=== PATIENT | female | born 1950 | race Caucasian/White ===

== ENCOUNTER → 2017-12-09 | Outpatient (CLI) | payer MEDICARE | LOC: M RAD 12:29 | DX: Z12.31 Encounter for screening mammogram for malignant neoplasm of breast (principal) | CPT/HCPCS: 77067 ==

== ENCOUNTER → 2018-01-26 | Outpatient (CLI) | payer MEDICARE | LOC: M WUC 13:37 | DX: M79.672 Pain in left foot (principal); S90.31XA Contusion of right foot, initial encounter; M77.32 Calcaneal spur, left foot; M77.31 Calcaneal spur, right foot; X58.XXXA Exposure to other specified factors, initial encounter; Y92.9 Unspecified place or not applicable | CPT/HCPCS: 73630 ==

== ENCOUNTER 2018-03-01 12:24 | Outpatient (RCR) | payer MEDICARE | END 2018-03-09 | disposition home or self-care (01) | LOC: M PT 12:24 | DX: Z47.89 Encounter for other orthopedic aftercare (principal); M76.62 Achilles tendinitis, left leg | CPT/HCPCS: 97110 ==

== ENCOUNTER 2018-03-11 12:09 | Outpatient (RCR) | payer MEDICARE | END 2018-04-09 | LOC: M PT 12:09 | DX: Z47.89 Encounter for other orthopedic aftercare (principal); M76.62 Achilles tendinitis, left leg | CPT/HCPCS: 97110 ==

== ENCOUNTER → 2019-03-11 | Outpatient (CLI) | payer MEDICARE ==
--- NOTE | 2019-03-11 15:15 | REP ---
BILATERAL SCREENING DIGITAL MAMMOGRAM WITHOUT 3D TOMOSYNTHESIS: There are no palpable abnormalities or other breast complaints. The the patient states she has not had a clinical breast examination in over a year. The Tyrer-Cuzick Score is: 4.8% . Comparison is 05/25/2014. There are scattered areas of fibroglandular density. There is no dominant mass, micro calcific cluster or architectural distortion that would indicate malignancy. There is no change from the prior study. Impression: BIRADS/ACR category 1 mammogram. Negative. Recommendation: Routine annual screening mammography. This mammogram was interpreted with the aid of a FDA approved computer-aided detection system. A. Negative mammogram reports should not delay biopsy if a dominant or clinically suspicious mass is present. B. Not all breast cancers are identified by mammography or tomosynthesis. C. Adenosis and dense breasts may obscure an underlying neoplasm. Patient letter M1. Electronically Signed by Ky Doyle MD 03/11/2019 03:06 P
== END ==
LOC: M RAD 13:52
PROVIDERS: ATTEND Family Medicine
DX: Z12.31 Encounter for screening mammogram for malignant neoplasm of breast (principal)

== ENCOUNTER 2019-03-25 11:13 | Emergency (ER) | payer MEDICARE ==
[~2019-03-25] VITALS: Ht 170.2 cm; Wt 108.2 kg
[2019-03-25 11:13] VITALS: BP 147/67
[2019-03-25] MEDS ORDERED: ONDANSETRON 4MG/2ML VIAL (J2405) IV ONE (12:15)
[2019-03-25] MEDS ORDERED: NS 1,000 ML IV ONE (12:15)
[2019-03-25] MEDS ORDERED: MORPHINE 4 MG/ML 1ML VIAL/SYRINGE (J2270) IV ONE (12:15)
[2019-03-25 12:34] LABS: BLOOD UREA NITROGEN 18 MG/DL (7-18); CALCIUM LEVEL 9.7 MG/DL (8.8-10.2); CARBON DIOXIDE LEVEL 19 MEQ/L (21-32); CHLORIDE LEVEL 108 MEQ/L (98-107); CREATININE FOR GFR 0.75 MG/DL (0.55-1.30); GLOMERULAR FILTRATION RATE > 60.0 (>45); GLUCOSE, FASTING 167 MG/DL (70-100); POTASSIUM SERUM 3.9 MEQ/L (3.5-5.1); SODIUM LEVEL 140 MEQ/L (136-145)
--- NOTE | 2019-03-25 12:45 | REP ---
Anterior abdominal wall ultrasound: History: Hernia. Abdominal pain. Sonographic findings: Normal subcutaneous tissue is seen. No abdominal wall defect is observed. No mass or cyst is seen. Impression: Unremarkable abdominal wall sonography. No evidence of hernia seen sonographically. Electronically Signed by Wesley Britt MD 03/25/2019 12:37 P
[2019-03-25 12:52] LABS: BASO # 0.1 10^3/uL (0.0-0.2); BASO % 0.8 % (0.0-1.0); EOS # 0.2 10^3/uL (0.0-0.50); EOS % 1.8 % (0.0-3.0); HEMATOCRIT 45.9 % (36.0-47.0); HEMOGLOBIN 15.1 g/dl (12.0-15.5); LYMPH # 2.2 10^3/uL (1.5-4.5); LYMPH % 23.8 % (24.0-44.0); MEAN CORPUSCULAR HEMOGLOBIN 28.8 pg (27.0-33.0); MEAN CORPUSCULAR HGB CONC 32.9 g/dl (32.0-36.5); MEAN CORPUSCULAR VOLUME 87.4 fl (80.0-96.0); MONO # 0.5 10^3/uL (0.0-0.8); MONO % 5.7 % (0.0-5.0); NEUTROPHILS # 6.3 10^3/uL (1.8-7.7); NEUTROPHILS % 67.7 % (36.0-66.0); PLATELET COUNT, AUTOMATED 232 10^3/uL (150-450); RED BLOOD COUNT 5.25 10^6/uL (4.00-5.40); WHITE BLOOD COUNT 9.3 10^3/uL (4.0-10.0)
[2019-03-25] MEDS ORDERED: ISOVUE-370 76% 100ML VIAL (Q9967) As Ordered ONE (13:16)
[2019-03-25 14:01] LABS: ALBUMIN 3.9 GM/DL (3.2-5.2); ALT/SGPT 56 U/L (12-78); AMYLASE 29 U/L (25-115); BILIRUBIN,DIRECT 0.1 MG/DL (0.0-0.2); BILIRUBIN,TOTAL 0.5 MG/DL (0.2-1.0); LIPASE 74 U/L (73-393); TOTAL PROTEIN 7.6 GM/DL (6.4-8.2)
[2019-03-25] MEDS ORDERED: CARA1TAB6 PO ×2 (14:32→14:53)
[2019-03-25] MEDS ORDERED: ONDA4TAB6 PO ×2 (14:38→14:53)
--- NOTE | 2019-03-25 15:54 | REP ---
CT ABDOMEN PELVIS WITH IV BUT WITHOUT ORAL CONTRAST: HISTORY: Epigastric pain. No comparison CT study. CT CONTRAST DOSE: 100 mL of intravenous Isovue 370. CT FINDINGS: Digital preliminary practice representative radiograph shows an unremarkable bowel gas pattern. The lung bases are essentially clear on axial CT images. The liver is homogeneous in texture and normal in size with diffuse fatty infiltration. Spleen is unremarkable. No pancreatic abnormality is seen. There are calcified gallstones layering in the dependent portion the gallbladder. No gallbladder wall thickening or pericholecystic fluid is seen. There is a tiny adrenal nodule in the left adrenal gland measuring 1.5 x 1.9 cm. There is a tiny accessory splenule in the left upper quadrant. No retroperitoneal mass or adenopathy is observed. The kidneys enhance symmetrically and are morphologically intact. Small and large intestinal bowel loops are normal in the upper abdomen. Pelvic CT images demonstrate that the cecum is deep in the pelvis and across the midline. A short segment of appendix is seen projecting posteriorly and to the right from the tip of the cecum in the central pelvis. There is no evidence of appendiceal inflammation. No ovarian or uterine abnormality is seen. Urinary bladder is largely empty but appears intact. No abdominal wall defect is observed. Bone window settings show no bony destructive lesion. IMPRESSION: 1. Diffuse fatty infiltration of the liver. 2. Cholelithiasis. 3. 1.9 cm left adrenal nodule, nonspecific but most likely a benign adrenal adenoma. Consider noncontrast CT scanning at a later date. 4. No other abnormality. Electronically Signed by Wesley Britt MD 03/25/2019 03:25 P
--- NOTE | 2019-03-27 21:14 | ED PDOC ---
Post-Departure Follow-Up dr boyer faxed formal report of ct ab/p for fu Kristina Almeida MD Mar 27, 2019 21:14
[2019-05-12] MEDS ORDERED: HYDR25TAB PO (08:51)
[2019-05-12] MEDS ORDERED: TRES1INJ SQ (08:51)
[2019-05-12] MEDS ORDERED: IBUP1TAB6 PO (08:51)
[2019-05-12] MEDS ORDERED: JANU100T PO (08:51)
[2019-05-12] MEDS ORDERED: PIOG1TAB37 PO (08:51)
[2019-05-12] MEDS ORDERED: GLIP5TAB8 PO ×2 (08:51)
[2019-05-12] MEDS ORDERED: FLUTISP (08:51)
[2019-05-12] MEDS ORDERED: RANI150T14 PO (08:51)
[2019-05-12] MEDS ORDERED: MULTCAP PO (08:51)
[2019-05-12] MEDS ORDERED: PURE500C5 PO (08:51)
[2019-05-12] MEDS ORDERED: TOLT4CAP3 PO (08:51)
[2019-05-12] MEDS ORDERED: SIMV40TA20 PO (08:51)
[2019-05-12] MEDS ORDERED: OYST1TAB PO (08:51)
[2019-05-12] MEDS ORDERED: D 1010002 PO (08:51)
[2019-05-12] MEDS ORDERED: MAGN250T7 PO (08:51)
[2019-05-12] MEDS ORDERED: LISI10TA4 PO (08:51)
[2019-05-12] MEDS ORDERED: LEVO150T7 PO (08:51)
== END 2019-03-25 15:16 | disposition home or self-care (01) ==
LOC: M ED 11:13
DX: K80.70 Calculus of gallbladder and bile duct without cholecystitis without obstruction (principal); E11.9 Type 2 diabetes mellitus without complications; Z88.1 Allergy status to other antibiotic agents; Z88.8 Allergy status to other drugs, medicaments and biological substances
CPT/HCPCS: 74177; 76705; 80048; 80076; 82150; 83605; 83690; 85025; 96374; 96375; 99284; J2270; J2405; Q9967

== ENCOUNTER → 2019-04-07 | Outpatient (CLI) | payer MEDICARE ==
[~2019-04-07] MED LIST: CARA1TAB6 PO; D 1010002 PO; FLUTISP; GLIP5TAB8 PO; HYDR25TAB PO; IBUP1TAB6 PO; JANU100T PO; LEVO150T7 PO; LISI10TA4 PO; MAGN250T7 PO; MULTCAP PO; ONDA4TAB6 PO; OYST1TAB PO; PIOG1TAB37 PO; PURE500C5 PO; RANI150T14 PO; SIMV40TA20 PO; TOLT4CAP3 PO; TRES1INJ SQ
--- NOTE | 2019-04-12 10:53 | DEXA ---
AP SPINE L1 - L4 1.112 -0.7 1.0 LT FEMUR TOTAL 0.950 -0.5 0.9 LT NECK 0.979 -0.4 1.2 RT FEMUR TOTAL 0.891 -0.9 0.4 RT NECK 0.931 -0.8 0.8 TOTAL BODY TOTAL OTHER COMMENTS: Normal bone densitometry of the spine and hips. FOLLOW-UP: Recommendation for the next bone density exam: 5 years. MORGAN
== END ==
LOC: M WHC 14:22
PROVIDERS: ATTEND Family Medicine
DX: M85.9 Disorder of bone density and structure, unspecified (principal)

== ENCOUNTER 2019-05-13 08:01 | Day surgery (SDC) | payer MEDICARE ==
[~2019-05-13] VITALS: Ht 170.2 cm; Wt 107.0 kg
[~2019-05-13 08:01] MED LIST changes: +LIDOCAINE 1% MDV 20ML VIAL SQ PRN; +LR 1,000 ML IV ONE; +SIMV40TA2 PO; -SIMV40TA20 PO
[2019-05-13] MEDS ORDERED: MIDAZOLAM INJ 2 MG/2 ML VIAL (J2250) As Ordered ONE (08:06)
[2019-05-13] MEDS ORDERED: fentaNYL 100 MCG/2 ML INJECTION (J3010) As Ordered ONE (08:06)
[2019-05-13] MEDS ORDERED: HYDROmorphone HCL 2 MG/ML 1ML VIAL (J1170) As Ordered ONE (08:06)
[2019-05-13] MEDS ORDERED: PROPOFOL 200 MG/20 ML VIAL As Ordered ONE (08:06)
[2019-05-13] MEDS ORDERED: LIDOCAINE 2% INJ 100 MG/5 ML SDV (FOR ANES.) As Ordered ONE (08:07)
[2019-05-13] MEDS ORDERED: ROCURONIUM BROMIDE 50 MG/5 ML VIAL As Ordered ONE (08:07)
[2019-05-13] MEDS ORDERED: dexameTHASONE 4 MG/ML 1ML VIAL (J1100) As Ordered ONE (08:08)
[2019-05-13] MEDS ORDERED: ONDANSETRON 4MG/2ML VIAL (J2405) As Ordered ONE ×2 (08:08→14:02)
[2019-05-13] MEDS ORDERED: LIDOCAINE W/EPINEPHRINE 1% 20ML VIAL As Ordered ONE (09:01)
[2019-05-13] MEDS ORDERED: BUPIVACAINE/EPIN 0.25% 30 ML VIAL As Ordered ONE (09:01)
[2019-05-13] MEDS ORDERED: LACRILUBE (AKWA TEARS) OPHTH OINT 3.5 GM As Ordered ONE (09:06)
[2019-05-13] MEDS ORDERED: KETAMINE HCL 200 MG/20 ML VIAL As Ordered ONE (09:49)
[2019-05-13] MEDS ORDERED: SUGAMMADEX SODIUM 500 MG/5 ML VIAL (BRIDION) As Ordered ONE (09:49)
[2019-05-13] MEDS ORDERED: ePHEDrine SULFATE 25 MG/5 ML(5MG/ML) SYRINGE As Ordered ONE (09:49)
[2019-05-13] MEDS ORDERED: KETOROLAC 60 MG/2 ML VIAL (J1885) As Ordered ONE (09:49)
[2019-05-13] MEDS ORDERED: DESFLURANE 240 ML INHALANT As Ordered ONE (10:20)
[2019-05-13] MEDS ORDERED: LR 1,000 ML IV SCH (12:15)
[2019-05-13] MEDS ORDERED: fentaNYL 100 MCG/2 ML INJECTION (J3010) IV PRN (12:15)
[2019-05-13] MEDS ORDERED: NORCO, ANEXSIA 5/325MG TABLET (HYDROcodone/ACETAMINOPHEN) PO PRN (12:15)
[2019-05-13] MEDS ORDERED: HYDROMORPHONE HCL 0.5 MG/ 0.5 ML SYRINGE (J1170 PER 1) IV PRN (12:15)
[2019-05-13] MEDS ORDERED: ONDANSETRON 4MG/2ML VIAL (J2405) IV PRN (12:15)
[2019-05-13] MEDS ORDERED: oxyCODONE 5MG TAB As Ordered ONE ×2 (12:32→13:31)
[2019-05-13] MEDS: PERCOCET 5MG/325MG TAB PO PRN ×2 (12:47→13:40)
[2019-05-13] MEDS ORDERED: PERCOCET 5MG/325MG TAB As Ordered ONE (13:34)
[2019-05-13 14:10] VITALS: BP 136/63
--- NOTE | 2019-05-14 09:00 | RO ---
DATE OF PROCEDURE: 05/13/2019 PREOPERATIVE DIAGNOSIS: Abdominal wall lipoma and symptomatic cholelithiasis. POSTOPERATIVE DIAGNOSIS: Abdominal wall lipoma and symptomatic cholelithiasis. PROCEDURE: Robotic cholecystectomy with excision of abdominal wall lipoma measuring 8 x 15 cm. SURGEON: Dr. Ky Mcclure. LETTER STAMPING MACHINE OPERATOR: None. ANESTHESIA: General. ESTIMATED BLOOD LOSS: 5. COMPLICATIONS: None. INDICATIONS FOR PROCEDURE: Patient is a 68-year-old female who presents with a large bulge in the center of her upper abdomen above the umbilicus that is slightly bothering her as well as some right upper quadrant pains. She was found to have symptomatic cholelithiasis as well as a large abdominal wall lipoma. Recommendation was to proceed with robotic repair and then excision of the lipoma at the same time. She understood and agreed to the procedure. Risks and benefits of the procedure not limited to but including bleeding, infection, hernia formation, damage to surrounding structures, need for further surgery was discussed in detail with her. Informed consent was obtained and procedure was planned. PROCEDURE: The patient was brought back to operating room seven. After sufficient sedation, the abdomen was sterilely prepped and draped. Next time-out was done confirm proper patient and proper procedure. Following that, an 8 mm incision was made in left lower quadrant. Veress needle inserted and the abdomen was insufflated to 15 mmHg. Veress needle was then removed and 8 mm robotic port was used to gain access to the abdomen. Once inside, three more ports were placed on a diagonal from the left upper quadrant to the right midabdomen. The gallbladder was elevated up towards the right shoulder. Cystic duct and cystic artery were carefully dissected free using combination of blunt and sharp dissection. They were both then doubly clipped and cut. Gallbladder was then removed from the gallbladder fossa using electrocautery and brought out through the right middle port site right through the center of the lipoma. Once that was completed, the robot was undocked, the ports removed. The port site overlying the lipoma was enlarged to about 8 cm. Circumferential dissection around the lipoma was done using combination of blunt and sharp dissection with cautery developing skin flaps superior and inferior all the way down to the level of the fascia. Once that was completed, the lipoma was removed measuring about 8 x 15 cm. Bleeding was controlled with electrocautery. The subcutaneous tissues were reapproximated with interrupted #3-0 Vicryl sutures and then a layer of meseret was completed on top of that completing a layered repair. Once that was completed, the port sites were also closed with meseret and the abdomen was then cleaned and dried. Steri-Strips, 4x4 and tape were applied thus ending procedure.
== END 2019-05-13 14:48 | disposition home or self-care (01) ==
LOC: M SDC 08:01
PROVIDERS: ATTEND Surgery
DX: K80.10 Calculus of gallbladder with chronic cholecystitis without obstruction (principal); D17.1 Benign lipomatous neoplasm of skin and subcutaneous tissue of trunk; I10 Essential (primary) hypertension; E78.5 Hyperlipidemia, unspecified; E03.9 Hypothyroidism, unspecified; E11.9 Type 2 diabetes mellitus without complications; G47.30 Sleep apnea, unspecified; Z79.4 Long term (current) use of insulin; Z79.899 Other long term (current) drug therapy; K21.9 Gastro-esophageal reflux disease without esophagitis; Z88.8 Allergy status to other drugs, medicaments and biological substances; Z88.1 Allergy status to other antibiotic agents
CPT/HCPCS: 11406; 47562; 88304; J1100; J1170; J1885; J2250; J2405; J3010

== ENCOUNTER → 2021-01-23 | Outpatient (CLI) | payer MEDICARE ==
[~2021-01-23] MED LIST changes: +D31000TA2 PO; +HYDR-3490 PO; -HYDR25TAB PO; -LIDOCAINE 1% MDV 20ML VIAL SQ PRN; +LISI10TA22 PO; -LISI10TA4 PO; -LR 1,000 ML IV ONE; -SIMV40TA2 PO; +SIMV40TA20 PO; +TRES100I SC
--- NOTE | 2021-01-23 15:54 | REP ---
INDICATION: YAYA SCR MAMMO. COMPARISON: 03/11/2019 as well as other prior exams. TECHNIQUE: MLO and CC views bilateral breasts with tomosynthesis. FINDINGS: Mild scattered fibroglandular tissue is present. A round nodule is seen just superior and medial to the right nipple superficially, measuring about 8 mm in maximum diameter. Margins appear well defined. There is otherwise no change when compared to the prior studies. No other evidence of mass or clustered microcalcifications. Benign small calcifications are seen bilaterally. The Volpara volumetric breast density pattern is B. IMPRESSION: BIRADS/ACR category 0, incomplete. Well-defined 8 mm nodule superficially near the right nipple, slightly medial and superior. Recommend spot compression views and ultrasound to further evaluate. This patient's Tyrer-Cuzick lifetime breast cancer risk assessment score is 4.3%. This mammogram was interpreted with the aid of an FDA-approved computer-aided detection system. The patient states she had a clinical breast exam in over 1 year ago. The patient letter being requested is M0. RECOMMENDATION: Recommend spot compression views and ultrasound right breast as discussed above. <Electronically signed by Ky Cobos > 01/23/21 [id number]
== END ==
LOC: M WHC 14:38
PROVIDERS: ATTEND Family Medicine
DX: Z12.31 Encounter for screening mammogram for malignant neoplasm of breast (principal)

== ENCOUNTER → 2021-02-07 | Outpatient (CLI) | payer MEDICARE ==
--- NOTE | 2021-02-07 15:51 | REP ---
INDICATION: ADDITIONAL VIEWS RT BREAST. COMPARISON: Comparison is made with prior mammography from January 23, 2021, March 11, 2019, December 09, 2017, and remote prior studies dated May 15, 2014 and October 23, 2008. TECHNIQUE: Magnified focal spot-compression CC MLO and true mediolateral views of the right breast are obtained. 3D tomography is used in the mediolateral projection. Targeted right breast sonography is carried out. This mammogram was interpreted with the aid of an FDA-approved computer-aided detection system. FINDINGS: Diagnostic mammography of the right breast confirms the presence of 2 well-circumscribed superficial nodular densities in the right breast anterior 3rd superiorly and slightly medially. Based on the true mediolateral projection, 1 of these may be related to the undersurface of the dermis. The other is in the superficial soft tissues of the breast. They are well-circumscribed and measure 6 mm in greatest diameter each. On review of remote prior mammography, both of these nodular opacities are felt to have been present as far back as October 23, 2008 and overall, are not felt to be changed. The Volpara volumetric breast density pattern is b. Targeted ultrasound: Targeted right breast sonography is performed. In the retroareolar region of the right breast there is a complex cystic lesion in the dermis of the right periareolar breast. This measures 5 x 3 by 6 mm. It has a complex internal echoes and low K PA level on elastography. At 12 o'clock position 1 cm from the nipple, there is a 5 x 3 x 5 mm hypoechoic area with its long axis parallel to the skin which is felt to correspond with the 2nd mammographic opacity. This is solid but as above, felt to be unchanged from remote prior mammography. IMPRESSION: BIRADS/ACR category 2 benign right breast mammographic and sonographic findings. This patient's Tyrer-Cuzick lifetime breast cancer risk assessment score is 4.3%. RECOMMENDATION: Repeat screening mammography recommended 1 year (for women over 40). The patient letter being requested is M1. <Electronically signed by Julian Britt > 02/07/21 [id number]
== END ==
LOC: M WHC 13:57
PROVIDERS: ATTEND Family Medicine
DX: Z12.39 Encounter for other screening for malignant neoplasm of breast (principal); N64.4 Mastodynia

== ENCOUNTER → 2022-03-27 | Outpatient (CLI) | payer MEDICARE ==
[~2022-03-27] MED LIST changes: -D31000TA2 PO; +VITA100093 PO
== END ==
LOC: M WHC 14:30
PROVIDERS: ATTEND Family Medicine
DX: Z12.31 Encounter for screening mammogram for malignant neoplasm of breast (principal)

== ENCOUNTER → 2022-04-09 | Outpatient (RCR) | payer MEDICARE, OTHER | LOC: M PT 04-01 13:22 | PROVIDERS: ATTEND Physician Assistant Surgical | DX: M17.12 Unilateral primary osteoarthritis, left knee (principal); R26.9 Unspecified abnormalities of gait and mobility ==

== ENCOUNTER → 2022-05-09 | Outpatient (RCR) | payer MEDICARE | LOC: M PT 04-18 13:31 | PROVIDERS: ATTEND Physician Assistant Surgical | DX: M17.12 Unilateral primary osteoarthritis, left knee (principal) ==

== ENCOUNTER 2022-05-22 13:15 | Outpatient (RCR) | payer MEDICARE ==
[~2022-05-22 13:15] MED LIST changes: +ASCO500C3 PO; -PURE500C5 PO
== END 2022-06-09 ==
LOC: M PT 13:15
PROVIDERS: ATTEND Physician Assistant Surgical
DX: M17.12 Unilateral primary osteoarthritis, left knee (principal); R26.9 Unspecified abnormalities of gait and mobility

== ENCOUNTER → 2023-04-06 | Outpatient (CLI) | payer MEDICARE, MEDICAID ==
[~2023-04-06] MED LIST changes: +FLUT50SP17; -FLUTISP
== END ==
LOC: M WHC 14:40
PROVIDERS: ATTEND Family Medicine
DX: Z12.31 Encounter for screening mammogram for malignant neoplasm of breast (principal)

== ENCOUNTER → 2023-06-22 | Outpatient (CLI) | payer MEDICAID, MEDICARE ==
[~2023-06-22] MED LIST changes: +GLIP5TAB17 PO; -GLIP5TAB8 PO
== END ==
LOC: M PLAIMG 13:59
PROVIDERS: ATTEND Family Medicine
DX: D48.7 Neoplasm of uncertain behavior of other specified sites (principal)

== ENCOUNTER → 2023-06-29 | Outpatient (REF) | payer MEDICARE, MEDICAID | LOC: M LAB REF 12:24 | PROVIDERS: ATTEND Family Medicine | DX: E83.52 Hypercalcemia (principal) ==

== ENCOUNTER → 2024-02-01 | Outpatient (CLI) | payer MEDICARE, MEDICAID ==
[~2024-02-01] MED LIST changes: -FLUT50SP17; +FLUTISP; +ONDA-282 PO; -ONDA4TAB6 PO
== END ==
LOC: M WUC 10:39
PROVIDERS: ATTEND Student in an Organized Health Care Education/Training Program
DX: M25.511 Pain in right shoulder (principal)

== ENCOUNTER → 2024-03-08 | Outpatient (REF) | payer MEDICARE, MEDICAID | LOC: M LAB REF 17:47 | PROVIDERS: ATTEND Surgery | DX: D17.1 Benign lipomatous neoplasm of skin and subcutaneous tissue of trunk (principal) ==

== ENCOUNTER → 2024-06-06 | Outpatient (REF) | payer MEDICARE, MEDICAID | LOC: M LAB REF 16:40 | PROVIDERS: ATTEND Family Medicine | DX: E78.00 Pure hypercholesterolemia, unspecified (principal) ==

== ENCOUNTER → 2024-07-06 | Outpatient (CLI) | payer MEDICARE | LOC: M WHC 13:50 | PROVIDERS: ATTEND Family Medicine | DX: Z12.31 Encounter for screening mammogram for malignant neoplasm of breast (principal) ==

== ENCOUNTER 2024-07-08 14:25 | Emergency (ER) | payer MEDICARE ==
[~2024-07-08] VITALS: Ht 167.6 cm; Wt 85.3 kg
[2024-07-08] MEDS ORDERED: ISOVUE-370 76% 100ML VIAL As Ordered ONE (14:58)
[2024-07-08 14:59] LABS: VENOUS O2 SATURATION 81.8 % (60.0-80.0); VENOUS PARTIAL PRESSURE CO2 26.1 mmHg (38.0-50.0); VENOUS PARTIAL PRESSURE O2 42.1 mmHg (30.0-50.0); VENOUS PH 7.456 UNITS (7.330-7.430); VENOUS STANDARD HCO3 20.8 MMOL/L; VENOUS TOTAL CO2 18.8 MMOL/L (24.0-28.0)
[2024-07-08 15:04] LABS: BASO # 0.1 10^3/uL (0.0-0.2); BASO % 0.7 % (0.0-1.0); EOS # 0.1 10^3/uL (0.0-0.5); EOS % 0.8 % (0.0-3.0); HEMATOCRIT 44.4 % (36.0-47.0); LYMPH # 1.9 10^3/uL (1.5-5.0); LYMPH % 15.2 % (24.0-44.0); MEAN CORPUSCULAR HEMOGLOBIN 28.1 pg (27.0-33.0); MEAN CORPUSCULAR HGB CONC 33.8 g/dl (32.0-36.5); MEAN CORPUSCULAR VOLUME 83.1 fl (80.0-96.0); MONO # 0.6 10^3/uL (0.0-0.8); MONO % 4.8 % (2.0-8.0); NEUTROPHILS # 9.8 10^3/uL (1.5-8.5); NEUTROPHILS % 77.5 % (36.0-66.0); PLATELET COUNT, AUTOMATED 186 10^3/uL (150-450); RED BLOOD COUNT 5.34 10^6/uL (4.00-5.40); WHITE BLOOD COUNT 12.7 10^3/uL (4.0-10.0)
[2024-07-08 15:18] LABS: APPEARANCE, URINE CLEAR (CLEAR); BACTERIA, URINE AUTO NEGATIVE (NEGATIVE); BILIRUBIN, URINE AUTO NEGATIVE (NEGATIVE); BLOOD, URINE BLOOD 1+ (NEGATIVE); COLOR, URINE STRAW (YELLOW); GLUCOSE, URINE (UA) AUTO 3+ mg/dL (NEGATIVE); KETONE, URINE AUTO 1+ mg/dL (NEGATIVE); LEUKOCYTE ESTERASE, URINE AUTO NEGATIVE (NEGATIVE); MUCUS, URINE SMALL (NEGATIVE); NITRITE, URINE AUTO NEGATIVE (NEGATIVE); PROTEIN, URINE AUTO NEGATIVE (NEGATIVE); RBC, URINE AUTO 5 /HPF (0-3); SPECIFIC GRAVITY URINE AUTO 1.028 (1.002-1.035); SQUAMOUS EPITHELIAL CELL UR AU 0 /HPF (0-6); UROBILINOGEN, URINE AUTO 0.2 mg/dL (0.0-2.0); WBC, URINE AUTO 5 /HPF (0-3)
[2024-07-08 15:23] LABS: INR 1.01; PARTIAL THROMBOPLASTIN TIME 25.2 SECONDS (24.8-34.2); PROTHROMBIN TIME 13.6 SECONDS (12.5-14.5)
[2024-07-08 15:31] LABS: AMPHETAMINES LEVEL URINE NEGATIVE (NEGATIVE); BARBITURATES URINE NEGATIVE (NEGATIVE); BENZODIAZEPINES URINE NEGATIVE (NEGATIVE); CANNABINOIDS URINE NEGATIVE (NEGATIVE); PHENCYCLIDINE URINE NEGATIVE (NEGATIVE)
[2024-07-08 15:32] LABS: ETHYL ALCOHOL (ETHANOL) < 0.003 % (0.000-0.010); LIPASE 24 U/L (12-53)
[2024-07-08 15:32] LABS: COCAINE METABOLITE URINE NEGATIVE (NEGATIVE); METHADONE URINE NEGATIVE (NEGATIVE); OPIATES URINE NEGATIVE (NEGATIVE)
[2024-07-08 15:34] LABS: AMYLASE 31 U/L (30-118)
[2024-07-08 15:37] LABS: ALBUMIN 3.9 G/DL (3.2-5.2); ALKALINE PHOSPHATASE 91 U/L (35-104); ALT/SGPT 28 U/L (7.0-40); AST/SGOT 28 U/L (<34); BILIRUBIN,DIRECT 0.2 MG/DL (<0.4); BILIRUBIN,TOTAL 0.5 MG/DL (0.3-1.2); BLOOD UREA NITROGEN 21 MG/DL (9-23); CALCIUM LEVEL 10.5 MG/DL (8.3-10.6); CARBON DIOXIDE LEVEL 19 MMOL/L (20-31); CHLORIDE LEVEL 99 MMOL/L (98-107); CREATININE FOR GFR 0.65 MG/DL (0.55-1.30); GLOMERULAR FILTRATION RATE > 60.0 (>39); GLUCOSE, FASTING 475 MG/DL (74-106); POTASSIUM SERUM 4.2 MMOL/L (3.5-5.1); SODIUM LEVEL 134 MMOL/L (136-145); TOTAL PROTEIN 7.9 G/DL (5.7-8.2)
[2024-07-08] MEDS: ONDANSETRON 4MG 2ML VIAL IV ONE (15:56)
[2024-07-08] MEDS: HumuLIN R (REGULAR) INSULIN (NovoLIN R) **100U/ML** PER UNIT IV ONE (16:20)
[2024-07-08] MEDS: MORPHINE 2 MG/ML 1ML VIAL IV PRN (16:52)
[2024-07-08 17:00] VITALS: O2SAT 94
[2024-07-08 17:02] VITALS: BP 165/74; TEMP 96.7
== END 2024-07-08 17:07 | disposition short-term general hospital (02) ==
LOC: M ED 14:25 → EDBD 14:25 → M ED 17:07
DX: S12.101A Unspecified nondisplaced fracture of second cervical vertebra, initial encounter for closed fracture (principal); Y92.410 Unspecified street and highway as the place of occurrence of the external cause; Y93.9 Activity, unspecified; Y99.9 Unspecified external cause status; V49.50XA Passenger injured in collision with unspecified motor vehicles in traffic accident, initial encounter; R94.31 Abnormal electrocardiogram [ECG] [EKG]; I10 Essential (primary) hypertension; E78.00 Pure hypercholesterolemia, unspecified; E11.9 Type 2 diabetes mellitus without complications; E03.9 Hypothyroidism, unspecified; G47.33 Obstructive sleep apnea (adult) (pediatric); Z88.1 Allergy status to other antibiotic agents; Z88.8 Allergy status to other drugs, medicaments and biological substances; Z79.4 Long term (current) use of insulin; Z79.810 Long term (current) use of selective estrogen receptor modulators (SERMs); Z79.899 Other long term (current) drug therapy
CPT/HCPCS: 70450; 71045; 71260; 72125; 72170; 74177; 80048; 80076; 80307; 81001; 82077; 82150; 82803; 83605; 83690; 85025; 85610; 85730; 86850; 86900; 86901; 93005; 93041; 94760; 96374; 96375; 99285; J1815; J2405; Q9967

== ENCOUNTER → 2025-03-29 | Outpatient (REF) | payer MEDICARE ==
[2025-03-29 17:33] LABS: BASO # 0.1 10^3/uL (0.0-0.2); BASO % 0.9 % (0.0-1.0); EOS # 0.3 10^3/uL (0.0-0.5); EOS % 3.9 % (0.0-3.0); LYMPH # 2.1 10^3/uL (1.5-5.0); LYMPH % 28.9 % (24.0-44.0); MONO # 0.5 10^3/uL (0.0-0.8); MONO % 6.5 % (2.0-8.0); NEUTROPHILS # 4.4 10^3/uL (1.5-8.5); NEUTROPHILS % 59.5 % (36.0-66.0); PLATELET COUNT, AUTOMATED 236 10^3/uL (150-450)
[2025-03-29 17:41] LABS: ALT/SGPT 28 U/L (7.0-40); AST/SGOT 24 U/L (<34); C REACTIVE PROTEIN QUANTITATIV < 0.50 MG/DL (<1.0); CALCIUM LEVEL 9.8 MG/DL (8.3-10.6); CARBON DIOXIDE LEVEL 25 MMOL/L (20-31); CHLORIDE LEVEL 107 MMOL/L (98-107); CREATININE FOR GFR 0.56 MG/DL (0.55-1.30); GLOMERULAR FILTRATION RATE > 90.0 (>39); POTASSIUM SERUM 4.4 MMOL/L (3.5-5.1); SODIUM LEVEL 142 MMOL/L (136-145)
== END ==
LOC: M SFHCCAPE 13:37
PROVIDERS: ATTEND Physician Assistant Medical
DX: R30.0 Dysuria (principal); R10.32 Left lower quadrant pain

== ENCOUNTER → 2025-04-07 | Outpatient (CLI) | payer MEDICARE ==
[~2025-04-07] MED LIST changes: -IBUP1TAB6 PO; +ISOVUE-370 76% 100 ML VIAL As Ordered ONE; +SFHIBU600 PO
== END ==
LOC: M RAD 15:42
PROVIDERS: ATTEND Physician Assistant Medical
DX: R10.32 Left lower quadrant pain (principal); K57.90 Diverticulosis of intestine, part unspecified, without perforation or abscess without bleeding; R93.3 Abnormal findings on diagnostic imaging of other parts of digestive tract
CPT/HCPCS: 74178; Q9967

== ENCOUNTER → 2025-04-19 | Outpatient (REF) | payer MEDICARE ==
[~2025-04-19] MED LIST changes: -ISOVUE-370 76% 100 ML VIAL As Ordered ONE
[2025-04-19 17:57] LABS: APPEARANCE, URINE HAZY (CLEAR); BACTERIA, URINE AUTO NEGATIVE (NEGATIVE); BILIRUBIN, URINE AUTO NEGATIVE (NEGATIVE); BLOOD, URINE BLOOD 1+ (NEGATIVE); GLUCOSE, URINE (UA) AUTO 1+ mg/dL (NEGATIVE); KETONE, URINE AUTO NEGATIVE (NEGATIVE); LEUKOCYTE ESTERASE, URINE AUTO 2+ (NEGATIVE); MUCUS, URINE SMALL (NEGATIVE); NITRITE, URINE AUTO NEGATIVE (NEGATIVE); PROTEIN, URINE AUTO NEGATIVE (NEGATIVE); RBC, URINE AUTO 1 /HPF (0-3); SPECIFIC GRAVITY URINE AUTO 1.017 (1.002-1.035); SQUAMOUS EPITHELIAL CELL UR AU 11 /HPF (0-6); UROBILINOGEN, URINE AUTO 0.2 mg/dL (0.0-2.0); WBC, URINE AUTO 42 /HPF (0-3)
== END ==
LOC: M SFHCCAPE 10:36
PROVIDERS: ATTEND Physician Assistant Medical
DX: R10.9 Unspecified abdominal pain (principal)

== ENCOUNTER → 2025-04-25 | Outpatient (REF) | payer MEDICARE | LOC: M SFHCCAPE 11:31 | PROVIDERS: ATTEND Physician Assistant Medical | DX: R10.9 Unspecified abdominal pain (principal) ==

== ENCOUNTER 2025-05-12 11:54 | Emergency (ER) | payer MEDICARE ==
[~2025-05-12] VITALS: Ht 170.2 cm; Wt 74.8 kg
[2025-05-12] MEDS ORDERED: ASPI81TA26 PO (12:04)
[2025-05-12] MEDS ORDERED: LEVO175T2 (12:04)
[2025-05-12] MEDS ORDERED: ROSU5TAB49 (12:04)
[2025-05-12] MEDS ORDERED: LANTINJ4 (12:04)
[2025-05-12] MEDS ORDERED: NOVOINJ3 (12:04)
[2025-05-12] MEDS: NS (Normal Saline) 0.9% 1,000 ML IV ONE (14:04)
[2025-05-12 14:07] LABS: KETONE, URINE AUTO RFX NEGATIVE (NEGATIVE); LEUKOCYTE ESTERASE UR AUTO RFX 3+ (NEGATIVE); MUCUS, URINE RFX SMALL (NEGATIVE); NITRITE, URINE AUTO RFX NEGATIVE (NEGATIVE); RBC, URINE AUTO RFX 10 /HPF (0-3); SQUAM EPITHELIAL CELL UR AURFX 12 /HPF (0-6); WBC, URINE AUTO RFX 33 /HPF (0-3)
[2025-05-12] MEDS ORDERED: ISOVUE-370 76% 100 ML VIAL As Ordered ONE (14:14)
[2025-05-12 14:16] LABS: BASO # 0.1 10^3/uL (0.0-0.2); BASO % 1.1 % (0.0-1.0); EOS # 0.3 10^3/uL (0.0-0.5); EOS % 3.4 % (0.0-3.0); LYMPH # 2.2 10^3/uL (1.5-5.0); LYMPH % 26.1 % (24.0-44.0); MONO # 0.5 10^3/uL (0.0-0.8); MONO % 5.4 % (2.0-8.0); NEUTROPHILS # 5.4 10^3/uL (1.5-8.5); NEUTROPHILS % 63.6 % (36.0-66.0); PLATELET COUNT, AUTOMATED 338 10^3/uL (150-450)
[2025-05-12 14:45] LABS: ALT/SGPT 20.0 U/L (7.0-40); AST/SGOT 18.0 U/L (<34)
[2025-05-12] MEDS: MOM 30 ML SUSPENSION UDC PO ONE (15:38)
[2025-05-12] MEDS ORDERED: TRIMETHOPRIM/SULFAMETH 80/400 MG TAB PO ONE (18:10)
[2025-05-12] MEDS ORDERED: BACT800T5 PO (18:10)
[2025-05-12] MEDS ORDERED: GABA-1171 PO (18:24)
[2025-05-12 18:34] VITALS: BP 187/91; TEMP 97.8; O2SAT 96
[2025-05-12] MEDS: BACTRIM 160MG/800MG DS TAB PO ONE (18:41)
[2025-05-12] MEDS: GABAPENTIN 100 MG CAP PO ONE (18:41)
== END 2025-05-12 18:54 | disposition home or self-care (01) ==
LOC: M ED 11:54
DX: N39.0 Urinary tract infection, site not specified (principal); J91.8 Pleural effusion in other conditions classified elsewhere; S22.030A Wedge compression fracture of third thoracic vertebra, initial encounter for closed fracture; S22.040A Wedge compression fracture of fourth thoracic vertebra, initial encounter for closed fracture; S22.050A Wedge compression fracture of T5-T6 vertebra, initial encounter for closed fracture; Y92.9 Unspecified place or not applicable; Y93.9 Activity, unspecified; Y99.9 Unspecified external cause status; Z88.1 Allergy status to other antibiotic agents; Z88.8 Allergy status to other drugs, medicaments and biological substances; Z79.1 Long term (current) use of non-steroidal anti-inflammatories (NSAID); Z79.4 Long term (current) use of insulin; Z79.899 Other long term (current) drug therapy; Z79.810 Long term (current) use of selective estrogen receptor modulators (SERMs)
CPT/HCPCS: 36415; 71250; 74018; 74177; 80047; 80076; 81001; 83605; 83880; 85025; 87086; 99284; Q9967

== ENCOUNTER 2025-06-23 14:27 | Emergency (ER) | payer MEDICARE ==
[~2025-06-23] VITALS: Ht 170.2 cm; Wt 71.8 kg
[~2025-06-23 14:27] MED LIST changes: +ASPI81TA26 PO; +BACT800T5 PO; +GABA-1171 PO; +LANTINJ4 SQ; +LEVO175T2 PO; +NOVOINJ3 SUBQ; +ROSU5TAB49 PO
[2025-06-23 16:53] LABS: VENOUS BASE EXCESS -2.6 (-2.0-2.0); VENOUS HCO3 22.9 MMOL/L (23.0-27.0); VENOUS O2 SATURATION 52.9 % (60.0-80.0); VENOUS PARTIAL PRESSURE CO2 42.0 mmHg (38.0-50.0); VENOUS PARTIAL PRESSURE O2 29.4 mmHg (30.0-50.0); VENOUS PH 7.354 UNITS (7.330-7.430); VENOUS STANDARD HCO3 21.3 MMOL/L; VENOUS TOTAL CO2 24.2 MMOL/L (24.0-28.0)
[2025-06-23 17:09] LABS: BASO # 0.0 10^3/uL (0.0-0.2); BASO % 0.4 % (0.0-1.0); EOS # 0.1 10^3/uL (0.0-0.5); EOS % 1.3 % (0.0-3.0); LYMPH # 1.8 10^3/uL (1.5-5.0); LYMPH % 19.6 % (24.0-44.0); MONO # 0.6 10^3/uL (0.0-0.8); MONO % 6.8 % (2.0-8.0); NEUTROPHILS # 6.6 10^3/uL (1.5-8.5); NEUTROPHILS % 71.7 % (36.0-66.0); PLATELET COUNT, AUTOMATED 195 10^3/uL (150-450)
[2025-06-23 17:20] LABS: ESTIMATED AVERAGE GLUCOSE 332.0 MG/DL (60-110)
[2025-06-23 17:27] LABS: OSMOLALITY SERUM 317.0 MOSM/KG (280-301)
[2025-06-23 17:29] LABS: ACETONE/KETONE 0.28 MMOL/L (0.02-0.27)
[2025-06-23 17:32] LABS: ALT/SGPT 24.0 U/L (7.0-40); AST/SGOT 14.0 U/L (<34); CALCIUM LEVEL 9.5 MG/DL (8.3-10.6); CARBON DIOXIDE LEVEL 26.0 MMOL/L (20-31); CHLORIDE LEVEL 100.0 MMOL/L (98-107); CREATININE FOR GFR 0.76 MG/DL (0.55-1.30); GLOMERULAR FILTRATION RATE 82.2 (>39); POTASSIUM SERUM 4.0 MMOL/L (3.5-5.1); SODIUM LEVEL 136.0 MMOL/L (136-145)
[2025-06-23] MEDS ORDERED: GABA-1171 PO (17:44)
[2025-06-23] MEDS ORDERED: LEVO200T4 PO (17:44)
[2025-06-23] MEDS ORDERED: PANT-23 PO (17:49)
[2025-06-23] MEDS ORDERED: AMMO12CR4 TOP (17:49)
[2025-06-23] MEDS ORDERED: LISI10TA22 PO (17:49)
[2025-06-23] MEDS ORDERED: HOME MED LIST COMPLETE! XX SCH (17:50)
[2025-06-23] MEDS: HumuLIN R (REGULAR) INSULIN (NovoLIN R) **100 U/ML** PER UNIT IV ONE (17:51)
[2025-06-23] MEDS ORDERED: META28.32 PO (17:52)
[2025-06-23] MEDS ORDERED: MIRA3350 PO (17:52)
[2025-06-23 18:12] LABS: KETONE, URINE AUTO RFX TRACE mg/dL (NEGATIVE); MUCUS, URINE RFX SMALL (NEGATIVE); NITRITE, URINE AUTO RFX NEGATIVE (NEGATIVE); RBC, URINE AUTO RFX 5 /HPF (0-3); SQUAM EPITHELIAL CELL UR AURFX 11 /HPF (0-6)
[2025-06-23 18:13] LABS: LEUKOCYTE ESTERASE UR AUTO RFX 3+ (NEGATIVE); WBC, URINE AUTO RFX 60 /HPF (0-3)
[2025-06-23] MEDS: NS 500 ML IV ONE ×2 (19:25→19:30)
[2025-06-23] MEDS ORDERED: ISOVUE-370 76% 100 ML VIAL As Ordered ONE (19:49)
[2025-06-23] MEDS ORDERED: PYRI1TAB5 PO (22:22)
[2025-06-23] MEDS ORDERED: CIPR-249 PO (22:22)
[2025-06-23] MEDS: ACETAMINOPHEN 500 MG TAB PO ONE (22:47)
[2025-06-23] MEDS: CIPROFLOXACIN 250 MG TAB PO ONE (22:47)
[2025-06-23] MEDS: PHENAZOPYRIDINE 100 MG TAB PO ONE (22:47)
[2025-06-23] MEDS: MORPHINE 4 MG/ML 1 ML VIAL IV PRN (23:29)
[2025-06-23 23:52] VITALS: BP 161/81; TEMP 97.2; O2SAT 98
== END 2025-06-23 23:53 | disposition home or self-care (01) ==
LOC: M ED 14:27
DX: N39.0 Urinary tract infection, site not specified (principal); E11.65 Type 2 diabetes mellitus with hyperglycemia; R94.31 Abnormal electrocardiogram [ECG] [EKG]; K21.9 Gastro-esophageal reflux disease without esophagitis; E03.9 Hypothyroidism, unspecified; I10 Essential (primary) hypertension; E78.00 Pure hypercholesterolemia, unspecified; Z88.1 Allergy status to other antibiotic agents; Z88.8 Allergy status to other drugs, medicaments and biological substances; Z79.1 Long term (current) use of non-steroidal anti-inflammatories (NSAID); Z79.4 Long term (current) use of insulin; Z79.899 Other long term (current) drug therapy
CPT/HCPCS: 74177; 80048; 80076; 81001; 82010; 82803; 83036; 83690; 83930; 85025; 87086; 93005; 93041; 94760; 96374; 96375; 99284; J1815; J2765; Q9967

== ENCOUNTER → 2025-07-26 | Outpatient (CLI) | payer MEDICARE ==
[~2025-07-26] MED LIST changes: +AMMO12CR4 TOP; +CIPR-249 PO; +LEVO200T4 PO; +META28.32 PO; +MIRA3350 PO; +PANT-23 PO; +PYRI1TAB5 PO
== END ==
LOC: M CARPUL 09:12
PROVIDERS: ATTEND Physician Assistant Medical
DX: J90 Pleural effusion, not elsewhere classified (principal); I51.7 Cardiomegaly